=== PATIENT | male | born 1985 | race American Indian/Alaskan Native ===

== ENCOUNTER 2016-11-13 15:56 | Emergency (ER) | payer MEDICARE ==
[2016-11-13 16:16] VITALS: BP 147/75
[2016-11-13] MEDS ORDERED: Ketorolac 60 MG/2 ML SDV IM ONE (16:41)
--- NOTE | 2016-11-13 17:47 | EDM.PDOC ---
[id number] KIDNEY PROBLEMS Time Seen by Provider: 11/13/16 16:20 Source of Information: Reports: Patient, Family History Limitations: Reports: No limitations - History of Present Illness INITIAL COMMENTS - FREE TEXT/NARRATIVE: 31-year-old male with lower back pain for the past 2 days. No specific trauma, no fever, no dysuria. Pain is across his lower back. He is concerned about his kidneys. Onset: gradual (Over the past 2 days) Location: Reports: back Severity: mild Worsens with: Reports: Movement Associated Symptoms: Reports: denies other symptoms - Related Data Allergies Allergy/AdvReac Type Severity Reaction Status Date / Time ibuprofen Allergy Other Verified 09/15/16 23:40 Home Meds: Home Meds ARIPiprazole [Abilify] 5 mg PO DAILY 07/20/13 [History] Zolpidem [Ambien] 5 mg PO BEDTIME PRN 07/20/13 [History] atoMOXetine HCl [Strattera] 80 mg PO DAILY 07/20/13 [History] Gabapentin [Gabapentin] 600 mg PO QID 10/31/13 [History] Past Medical History Respiratory History: Reports: Asthma Genitourinary History: Reports: Other (see below) Other Genitourinary History: r kidney abnormality Musculoskeletal History: Reports: Back pain, chronic, Fracture Neurological History: Reports: Seizure Psychiatric History: Reports: ADHD, Bipolar, Depression Endocrine/Metabolic History: Reports: Obesity/BMI 30+ - Infectious Disease History Infectious Disease History: Reports: Chicken pox, Measles, Mumps - Past Surgical History Respiratory Surgical History: Reports: None Male Surgical History: Reports: None Neurological Surgical History: Reports: None Musculoskeletal Surgical History: Reports: None Social & Family History - Tobacco Use Smoking Status *Q: Current Every Day Smoker Years of Tobacco use: 10 Packs/Tins Daily: 0.1 Used Tobacco, but Quit: No Second Hand Smoke Exposure: Yes - Caffeine Use Caffeine Use: Reports: Energy drinks, Soda - Alcohol Use Days Per Week of Alcohol Use: 0 - Recreational Drug Use Recreational Drug Use: No ED ROS GENERAL - Review of Systems Review Of Systems: See Below Constitutional: Denies: fever, chills Respiratory: Denies: Shortness of Breath Cardiovascular: Denies: Chest pain GI/Abdominal: Denies: Abdominal pain Musculoskeletal: Reports: back pain Neurological: Reports: No Symptoms. Denies: Paresthesia ED EXAM, GENERAL - Physical Exam Exam: See Below Exam Limited By: No limitations General Appearance: alert, no apparent distress Respiratory/Chest: no respiratory distress, lungs clear Cardiovascular: regular rate, rhythm Back Exam: paraspinal tenderness (Some paraspinous tenderness to palpation over the extreme lower back just above the sacrum) Course - Vital Signs Last Recorded V/S: Last Vital Signs Temp 98.6 F 11/13/16 16:34 Pulse 84 11/13/16 16:34 Resp 16 11/13/16 16:34 BP 147/75 H 11/13/16 16:34 Pulse Ox 98 11/13/16 16:34 - Orders/Labs/Meds Labs: Laboratory Tests 11/13/16 11/13/16 11/13/16 Range/Units 16:15 16:17 16:52 Sodium 143 (140-148) mmol/L Potassium 3.8 (3.6-5.2) mmol/L Chloride 105 (100-108) mmol/L Carbon Dioxide 30 (21-32) mmol/L Anion Gap 8.5 (5.0-14.0) mmol/L BUN 10 (7-18) mg/dL Creatinine 1.0 (0.8-1.3) mg/dL Est Cr Clr Drug Dosing 109.00 mL/min Estimated GFR (MDRD) > 60 (>60) Glucose 119 H (74-106) mg/dL Calcium 8.4 L (8.5-10.1) mg/dL Urine Color Yellow Urine Appearance Clear Urine pH 6.0 (4.5-8.0) Ur Specific [place] 1.015 (1.008-1.030) Urine Protein Negative (NEGATIVE) mg/dL Urine Glucose (UA) Normal (NEGATIVE) mg/dL Urine Ketones Negative (NEGATIVE) mg/dL Urine Occult Blood Negative (NEGATIVE) Urine Nitrite Negative (NEGAITVE) Urine Bilirubin Negative (NEGATIVE) Urine Urobilinogen Normal (NORMAL) mg/dL Ur Leukocyte Esterase Negative (NEGATIVE) Urine RBC 0-5 (0-5) Urine WBC 0-5 (0-5) Ur Epithelial Cells Rare Amorphous Sediment Not seen Urine Bacteria Not seen Urine Mucus Not seen Urine Opiates Screen Negative (NEGATIVE) Ur Oxycodone Screen Negative (NEGATIVE) Urine Methadone Screen Negative (NEGATIVE) Ur Propoxyphene Screen Negative (NEGATIVE) Ur Barbiturates Screen Negative (NEGATIVE) Ur Tricyclics Screen Negative (NEGATIVE) Ur Phencyclidine Scrn Negative (NEGATIVE) Ur Amphetamine Screen Negative (NEGATIVE) U Methamphetamines Scrn Negative (NEGATIVE) Urine MDMA Screen Negative (NEGATIVE) U Benzodiazepines Scrn Negative (NEGATIVE) U Cocaine Metab Screen Negative (NEGATIVE) U Marijuana (THC) Screen Negative (NEGATIVE) Meds: Medications Discontinued Medications Generic Name Dose Route Start Last Admin Trade Name Freq PRN Reason Stop Dose Admin Ketorolac Tromethamine 60 mg 11/13/16 16:41 11/13/16 16:58 Toradol IM 11/13/16 16:42 60 mg ONETIME ONE Administration - Re-Assessments/Exams Free Text/Narrative Re-Assessment/Exam: 11/13/16 18:01 Patient was then given an injection of Toradol 60 mg IM. UA was negative, BMP was negative urine drug scan was negative. Patient was reassured and encouraged to increase activity as tolerated. Departure - Departure Time of Disposition: 17:50 Disposition: Home, Self-Care 01 Condition: good Clinical Impression: Low back pain Qualifiers: Chronicity: acute Back pain laterality: bilateral Sciatica presence: without sciatica Qualified Code(s): M54.5 - Low back pain Instructions: Back Pain, Adult, [id number] Referrals: Kavon Hurt PA-C [Primary Care Provider] - Forms: ED Department Discharge Care Plan Goals: Increase activity as tolerated, Tylenol should help and recheck next week if not improving satisfactorily.
== END 2016-11-13 17:52 | disposition home or self-care (01) ==
LOC: JP.ED 15:56
DX: M54.5 Low back pain (principal); F32.9 Major depressive disorder, single episode, unspecified; F31.9 Bipolar disorder, unspecified; F17.210 Nicotine dependence, cigarettes, uncomplicated; E66.9 Obesity, unspecified; Z68.39 Body mass index [BMI] 39.0-39.9, adult; Z79.899 Other long term (current) drug therapy; Z88.8 Allergy status to other drugs, medicaments and biological substances
CPT/HCPCS: 36415; 80048; 80305; 81001; 96372; 99283; 99284; J1885